=== PATIENT | male | born 1980 | race Two or more races ===

== ENCOUNTER 2021-06-28 16:22 | Emergency (ER) | payer MEDICAID ==
[~2021-06-28] VITALS: Ht 188 cm; Wt 90.7 kg
[2021-06-28 16:38] VITALS: BP 143/100
== END 2021-06-28 17:11 | disposition left against medical advice (07) ==
LOC: ER 16:22
DX: R44.0 Auditory hallucinations (principal); Z53.21 Procedure and treatment not carried out due to patient leaving prior to being seen by health care provider